=== PATIENT | male | born 1980 | race Asian ===

== ENCOUNTER 2017-03-09 09:20 | Emergency (ER) | payer MEDICAID ==
[~2017-03-09] VITALS: Ht 165.1 cm; Wt 55.8 kg
[2017-03-09 09:39] VITALS: BP 121/78
[2017-03-09] MEDS ORDERED: Bacitracin Oint 15gm Tube TOPIC ONE ×2 (10:53→10:54)
[2017-03-09] MEDS ORDERED: BACITRACIN-POL1 EACH TOPIC (10:53)
[2017-03-09] MEDS ORDERED: Bacitracin Oint UD TOPIC ONE (11:00)
[2017-03-09] MEDS ORDERED: Tetanus/Diptheria/Pertussis Vaccine 0.5ml Syr IM ONE (11:00)
[2017-03-09 11:16] VITALS: BP 124/83
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
== END 2017-03-09 11:17 | disposition home or self-care (01) ==
LOC: EMR 11:00
DX: T22.211A Burn of second degree of right forearm, initial encounter (principal); X10.1XXA Contact with hot food, initial encounter; Y92.009 Unspecified place in unspecified non-institutional (private) residence as the place of occurrence of the external cause; Z23 Encounter for immunization
CPT/HCPCS: 90471; 90715; 99283